=== PATIENT | male | born 1940 | race Hispanic/Latino ===

== ENCOUNTER → 2020-04-03 | Day surgery (SDC) | payer MEDICARE, OTHER ==
[~2020-04-03] MED LIST: ASPIRIN81 MG PO; AVODART0.5 MG PO; BUPIVACAINE HCL 0.5% INJ 30 ML VIAL INJ ONE; CEFAZOLIN SOD 1 GM/NS 50ML 100 ML IV ONE; CRESTOR10 MG PO; DOXAZOSIN MESYLA2 MG PO; ETOMIDATE 2 MG/ML 10 ML INJ IV ONE; FENTANYL CITRATE/PF 100MCG/2 ML INJ ONE; GLIPIZIDE5 MG PO; HYDROCHLOROTHIA25 MG PO; KETOROLAC TROMETHAMINE 30 MG/ML VIAL ONE; LIDOCAINE HCL 2% LOCAL INJ 5 ML SDV VIAL INJ ONE; LISINOPRIL10 MG PO; METFORMIN HCL500 MG PO; ONDANSETRON HCL INJ 2MG/ML 2ML 2 MG/ML VIAL ONE; PROPOFOL IV EMULSION 10 MG/ML 20 ML VIAL ONE; SEVOFLURANE INHAL SOLN 250 ML PEN BTL ONE; SUGAMMADEX SODIUM 200 MG/2 ML VIAL IV ONE
[2020-04-03 09:44] LABS: BASOPHILS % 0.3 % (0.0-1.0); EOSINOPHILS # (AUTO) 0.2 (0.0-0.4); HEMATOCRIT 40.2 % (38.2-49.6); HEMOGLOBIN 13.4 g/dL (14.0-18.0); LYMPHOCYTES # (AUTO) 2.8 (1.0-3.2); LYMPHOCYTES % 36.5 % (18.0-39.1); MEAN CORPUSCULAR HGB CONC 33.3 g/dL (31-35); MEAN CORPUSCULAR VOLUME 93.1 fL (81-99); MONOCYTES # (AUTO) 0.5 (0.2-0.8); NEUTROPHILS # (AUTO) 4.1 (2.1-6.9); NEUTROPHILS % 53.8 % (38.7-80.0); PLATELET COUNT 197 x10e3/uL (140-360); RED BLOOD COUNT 4.32 x10e6/uL (4.3-5.7); RED CELL DISTRIBUTION WIDTH 12.3 % (11.7-14.4)
[2020-04-03 10:01] LABS: ALANINE AMINOTRANSFERASE 63 IU/L (0-55); ALBUMIN 3.7 g/dL (3.5-5.0); ALBUMIN/GLOBULIN RATIO 0.9 (0.8-2.0); ALKALINE PHOSPHATASE 49 IU/L (40-150); ANION GAP 14.7 mmol/L (8-16); BLOOD UREA NITROGEN 14 mg/dL (7-26); BUN/CREATININE RATIO 16 (6-25); CALCIUM 9.3 mg/dL (8.4-10.2); CARBON DIOXIDE 26 mmol/L (22-29); CHLORIDE 101 mmol/L (98-107); CREATININE, SERUM 0.86 mg/dL (0.72-1.25); EST GLOMERULAR FILTRATION RATE > 60 ML/MIN (60-); GLUCOSE 158 mg/dL (74-118); POTASSIUM 3.7 mmol/L (3.5-5.1); SODIUM 138 mmol/L (136-145)
--- NOTE | 2020-04-03 10:16 | Diagnostic Imaging Report ---
EXAMINATION: CHEST 2 VIEWS INDICATION: Pre-operative COMPARISON: None FINDINGS: LINES/TUBES:None LUNGS:The lung volumes are low. Mild linear bibasilar opacities. PLEURA:No pleural effusion or pneumothorax. MEDIASTINUM:The cardiomediastinal silhouette appears normal in size and shape. BONES/SOFT TISSUES:No acute osseous injury. ABDOMEN:No free air under the diaphragm. Status post cholecystectomy. IMPRESSION: Mild right greater than left basilar subsegmental atelectasis. No focal pneumonia or pulmonary edema. Signed by: James Peters MD on 04/03/2020 10:13 AM
[2020-04-03 15:05] VITALS: BP 140/89
--- NOTE | 2020-04-03 18:53 | Operative Report ---
DATE OF PROCEDURE: 04/03/2020 SURGEON: Giancarlo Padron MD PREOPERATIVE DIAGNOSIS: Bilateral inguinal hernia. POSTOPERATIVE DIAGNOSIS: Bilateral inguinal hernia. OPERATIVE PROCEDURE: Repair of bilateral inguinal hernia with mesh. ANESTHESIA: General. INDICATION FOR SURGERY: This patient is an 79-year-old male with bilateral growing hernia with increasing discomfort. The patient consented for repair bilaterally. Attendant risks discussed. PROCEDURE FINDINGS: Bilateral direct inguinal hernia. DESCRIPTION OF PROCEDURE: The patient was brought to the OR and intubated. The abdomen was then prepped and draped in sterile fashion. The right inguinal incision was made, extending down to the fascia of the external black, which was then incised in direction of its fibers. Underlying muscle was split perpendicularly and the preperitoneal space was incised, and entered with blunt dissection. A Downey drain was placed around the spermatic cord and we proceeded to reduce a direct hernia sac which is large, containing omental fat and hernia sac. With the preperitoneal space developed, we then proceeded to deploy an extended Prolene hernia system into the preperitoneal space, covering the direct and indirect space. The mesh was anchored to the Facundo ligament with a 2-0 Prolene stitch. The overlying transversalis fascia was then closed with interrupted 2-0 Vicryl, anchoring the mesh to itself. External oblique fascia was closed with running 2-[address] was closed with 3-0 Vicryl and skin was closed with staple. In a similar fashion, the left inguinal incision was made going down to the external oblique fascia, was then opened and the underlying muscle was split and preperitoneal space was entered after incising the transversalis fascia. The left inguinal direct sac was also identified and reduced from the abdominal wall. The Jacqueline drain was placed around the spermatic cord with the preperitoneal space completely developed. We then proceeded to deploy a similar extended Prolene hernia system into the preperitoneal space and anchored to the Facundo ligament with a stitch of 2-0 Prolene. Overlying transversalis fascia was closed with interrupted 2-0 Vicryl anchoring into the mesh. External oblique fascia was closed with a running 2-[address] was closed with 3-0 Vicryl. Skin was closed with onesimo. Dressing applied. The patient was extubated and transported to recovery room. Blood loss was 10 mL. Giancarlo MD MUSTAPHA Chambers/ABELARDO /[id number]
== END | disposition home or self-care (01) ==
LOC: OR 09:02
PROVIDERS: ATTEND Surgery
DX: K40.20 Bilateral inguinal hernia, without obstruction or gangrene, not specified as recurrent (principal); I10 Essential (primary) hypertension; E11.9 Type 2 diabetes mellitus without complications; Z01.812 Encounter for preprocedural laboratory examination; Z11.59 Encounter for screening for other viral diseases; Z79.82 Long term (current) use of aspirin; Z79.84 Long term (current) use of oral hypoglycemic drugs
CPT/HCPCS: 36415; 49505; 71046; 80053; 82948; 85025; 93005; C1781; J0690; J1885; J2001; J2405; J2704; J3010; U0002